=== PATIENT | female | born 1965 | race Caucasian/White ===

== ENCOUNTER → 2016-04-11 | Outpatient (CLI) | payer BC ==
--- NOTE | 2016-04-11 08:08 | MM ---
Reason for exam: follow-up at short interval from prior study. Last mammogram was performed 6 months ago. History: Family history of breast cancer in maternal grandmother at age 60. Benign cyst aspiration of the right breast, April 2014. Core biopsy of the right breast, 2006. Cyst aspiration of the left breast. Excisional biopsy of the right breast. Physical Findings: Nurse did not find any significant physical abnormalities on exam. MG 3D Diag Mammo W/Cad LT CC and MLO view(s) were taken of the left breast. Prior study comparison: October 25, 2015, bilateral MG 3d diag mammo w/cad BRAYDEN. October 23, 2014, bilateral MG diagnostic mammo w CAD BRAYDEN. The breast tissue is extremely dense which could obscure a lesion on mammography. Finding: There are typically benign round calcifications in the left breast. Previous mammotome biopsy in the left breast x 2. There is no discrete abnormality. These results were verbally communicated with the patient and result sheet given to the patient on 04/11/16. ASSESSMENT: Benign, BI-RAD 2 RECOMMENDATION: Routine screening mammogram of both breasts in 6 months.
== END | disposition home or self-care (01) ==
LOC: RADMAMWWP 06:57
PROVIDERS: ATTEND Surgery
DX: R92.8 Other abnormal and inconclusive findings on diagnostic imaging of breast (principal)
CPT/HCPCS: G0206; G0279

== ENCOUNTER → 2016-09-22 | Outpatient (CLI) | payer BC ==
--- NOTE | 2016-09-22 08:41 | BD ---
EXAMINATION TYPE: MG DEXA axial skeleton. DATE OF EXAM: 09/22/2016 COMPARISON: NONE CLINICAL HISTORY: Z78.0 POST MENOPAUSAL Height: 69 Weight: 128 FRAX RISK QUESTIONS: Alcohol (3 or more units per day): NO Family History (Parent hip fracture): NO Glucocorticoids (More than 3mos): NO (Ex: prednisone, prednisolone, methylprednisolone, dexamethasone, and hydrocortisone). History of Fracture in Adulthood: NO Secondary Osteoporosis: NO 1. Type 1 Diabetes: NO 2. Hyperthyroidism: NO 3. Menopause before 45: NA 4. Malnutrition: NO 5. Chronic liver disease: NO Rheumatoid Arthritis: NO Current Tobacco Use: NO RISK FACTORS HISTORY OF: Family History of Osteoporosis: NONE Active: YES Diet low in dairy products/other sources of calcium: NO Postmenopausal woman: NOVASURE, NO MENOPAUSE YES, PER PHYSICIAN If Premenopausal, do you have irregular periods: UNSURE, NOVASURE PROCEDURE. Lost more than 2 inches in height since high school: NO Hyperparathyroidism: NO Adrenal Insufficiency: NO MEDICATIONS: Additional Medications: VIT D, 4000 UNITS DAILY, MULTIVITAMIN, C AND B12 Additional History: NONE TO NOTE EXAM MEASUREMENTS: Bone mineral densitometry was performed using the [employer] System. Bone mineral density as measured about the Lumbar spine is: ----- L1-L4(G/cm2): 1.267 T Score Values are as follows: ----- L1: 1.5 ----- L2: 1.4 ----- L3: 0.6 ----- L4: -0.4 ----- L1-L4: 0.7 Bone mineral density THIS IS HER FIRST BONE DENSITY SCAN.....BASELINE Bone mineral density about the R hip (g/cm2): 0.966 Bone mineral density about the L hip (g/cm2): 1.008 T Score values are as follows: -----R Neck: -0.5 -----L Neck: -0.1 -----R Total: -0.3 -----L Total: 0.0 Bone mineral density THIS IS HER FIRST BONE DENSITY TEST....BASELINE FRAX %'S: THERE IS A 3.0% CHANCE OF A MAJOR OSTEOPOROTIC FX AND A 0.1% CHANCE OF A HIP FX.....CT OBABILITY IN 10 YRS TIME IMPRESSION: Normal (Values between +1 and -1 indicate normal bone mass). Consider repeating this study in 5 year s or sooner if there is some new clinical indication FOR BOTH OF HER HIPS AND HER LUMBAR SPINE. NOTE: T-SCORE=SD OF THE YOUNG ADULT MEAN.
== END ==
LOC: RADBDWWP 08:00
PROVIDERS: ATTEND Obstetrics & Gynecology
DX: Z78.0 Asymptomatic menopausal state (principal)
CPT/HCPCS: 77080

== ENCOUNTER → 2016-10-23 | Outpatient (CLI) | payer BC ==
--- NOTE | 2016-10-23 09:36 | MM ---
Reason for exam: follow-up at short interval from prior study. Last mammogram was performed 6 months ago. History: Family history of breast cancer in mother at age 75 and breast cancer in maternal grandmother at age 60. Benign stereotactic core biopsy of the left breast, October 2015. Benign cyst aspiration of the right breast, April 2014. Core biopsy of the right breast, 2006. Cyst aspiration of the left breast. Excisional biopsy of the right breast. Physical Findings: Nurse did not find any significant physical abnormalities on exam. MG 3D Diag Mammo W/Cad BRAYDEN Bilateral CC and MLO view(s) were taken. Prior study comparison: April 11, 2016, left breast MG 3d diag mammo w/cad LT. October 25, 2015, bilateral MG 3d diag mammo w/cad [facility]RAY[facility]. The breast tissue is extremely dense which could obscure a lesion on mammography. Post biopsy changes in the left breast. These results were verbally communicated with the patient and result sheet given to the patient on 10/23/16. ASSESSMENT: Benign, BI-RAD 2 RECOMMENDATION: Routine screening mammogram of both breasts in 1 year.
== END | disposition home or self-care (01) ==
LOC: RADMAMWWP 08:52
PROVIDERS: ATTEND Surgery
DX: R92.8 Other abnormal and inconclusive findings on diagnostic imaging of breast (principal)
CPT/HCPCS: G0204; G0279

== ENCOUNTER → 2017-10-30 | Outpatient (CLI) | payer BC ==
--- NOTE | 2017-11-02 13:43 | MM ---
Reason for exam: screening (asymptomatic). Last mammogram was performed 1 year ago. History: Family history of breast cancer in mother at age 75 and breast cancer in maternal grandmother at age 60. Benign stereotactic core biopsy of the left breast, October 2015. Benign cyst aspiration of the right breast, April 2014. Core biopsy of the right breast, 2006. Cyst aspiration of the left breast. Excisional biopsy of the right breast. Physical Findings: A clinical breast exam by your physician is recommended on an annual basis and results should be correlated with mammographic findings. MG 3D Screening Mammo W/Cad Bilateral CC and MLO view(s) were taken. Prior study comparison: October 23, 2016, bilateral MG 3d diag mammo w/cad B[facility]. April 11, 2016, left breast MG 3d diag mammo w/cad LT. The breast tissue is extremely dense which could obscure a lesion on mammography. Benign calcifications. Previous mammotome biopsy in the left breast. No significant changes when compared with prior studies. ASSESSMENT: Benign, BI-RAD 2 RECOMMENDATION: Routine screening mammogram of both breasts in 1 year.
== END | disposition home or self-care (01) ==
LOC: RADMAMWWP 16:05
PROVIDERS: ATTEND Surgery
DX: Z12.31 Encounter for screening mammogram for malignant neoplasm of breast (principal)
CPT/HCPCS: 77063; 77067

== ENCOUNTER → 2017-12-17 | Outpatient (CLI) | payer BC ==
[2017-12-17 09:32] VITALS: BP 142/80; PULSE 55; RESP 16; TEMP 97.3; BMI 19.3
--- NOTE | 2017-12-17 10:02 | P.GSHP ---
History of Present Illness H&P Date: 12/17/17 Chief Complaint: dense breast The patient is a 51 year old white female with a complaint of soreness in her right breast. It has been there for several weeks. She had an ovarian ablation but does not have periods, she can't tell if this is cylical. She does drink a pot of coffee/day. She does not smoke. The patient has no history of infection in her breast. She has no nipple discharge or skin changes. She has no history of any trauma to her breast. Patient had bilateral mammogram performed 9718 this was BIRADS 2 showing extremely dense breast tissue. No significant changes when compared to prior studies and routine mammogram of both breasts in 1 year was recommended. Family History: 1. Mother: Breast cancer 2. Maternal grandmother: Breast cancer 3. Father: Laryngeal cancer he was a prior smoker Hormonal history: Menarche:16 : 2, breast fed: none, age at first: 31 menopause: status post ablation BCP: 5 years hormones: none Past surgical history: 1. Cholecystectomy 2. Ventral hernia repair 3. uterine ablation 4. Breast biopsy 5. Bladder suspension Past medical history: Negative Social history: Smoking: Negative Alcohol: Negative Drugs: Negative - Constitutional Constitutional: Denies chills, Denies fever - EENT Eyes: denies blurred vision, denies pain Ears: deny: decreased hearing, tinnitus Ears, nose, mouth and throat: Denies headache, Denies sore throat - Breasts Breasts: bilateral: as per HPI - Cardiovascular Cardiovascular: Denies chest pain, Denies shortness of breath - Respiratory Respiratory: Denies cough, Denies 7 - Gastrointestinal Gastrointestinal: Denies abdominal pain, Denies diarrhea, Denies nausea, Denies vomiting - Genitourinary (Female) Comment: uterine ablation done for bleeding - Menstruation Menstruation: Reports as per HPI - Musculoskeletal Musculoskeletal: Denies myalgias - Integumentary Integumentary: Denies pruritus, Denies rash - Neurological Neurological: Denies numbness, Denies weakness - Psychiatric Psychiatric: Denies anxiety, Denies depression - Endocrine Endocrine: Denies fatigue, Denies weight change - Hematologic/Lymphatic Comment: none - Allergic/Immunologic Comment: none Past Medical History Past Medical History: No Reported History History of Any Multi-Drug Resistant Organisms: None Reported Past Surgical History: Ablation, Bladder Surgery, Cholecystectomy, Hernia Repair Additional Past Surgical History / Comment(s): uterine ablation Additional Past Anesthesia/Blood Transfusion Reaction / Comment(s): N &V Past Psychological History: No Psychological Hx Reported Smoking Status: Never smoker Past Alcohol Use History: None Reported Past Drug Use History: None Reported - Past Family History Mother Family Medical History: AFIB, Cancer Additional Family Medical History / Comment(s): breast cancer age 76 Father Family Medical History: Coronary Artery Disease (CAD), Diabetes Mellitus Additional Family Medical History / Comment(s): open heart Surgical - Exam Vital Signs Temp Pulse Resp BP Pulse Ox 97.3 F L 55 L 16 142/80 100 12/17/17 09:21 12/17/17 09:21 12/17/17 09:21 12/17/17 09:21 12/17/17 09:21 BMI 19.4 - General well developed, no distress - Eyes normal ocular movement - ENT no hearing loss, no congestion - Neck no masses, trachea midline - Respiratory normal respiratory effort, clear to auscultation - Cardiovascular Rhythm: regular Heart Sounds: normal: S1, S2 - Abdomen Abdomen: soft - Integumentary no rash, no abnormal pigmentation - Neurologic no disoriented, no combative - Musculoskeletal normal gait, normal posture - Psychiatric oriented to time, oriented to person, oriented to place, speech is normal, memory intact breast exam: right breast: Multi-positional exam increased nodularity at the 7 o'clock position inferior outer quadrant, well-healed scar from prior biopsy Right axilla: Shoddy adenopathy Left breast: Dense breast no dominant masses or nodules of concern on multi- positional exam Left axilla: No adenopathy of concern Results Bilateral mammogram results from 9717 reviewed, these are benign BIRADS 2 Assessment and Plan Assessment: Impression: 1. Dense breast 2. Increased nodularity right breast lower outer quadrant area 3. Bilateral mammogram 9717 benign Plan: 1. FNA of increased nodularity right breast 2. Follow-up one week for results of FNA 3. We have discussed that the pain in her breast may be related to caffeine intake/1 pot of coffee a day. The patient understands this and will consider if she wishes to decrease her caffeine intake. She does not smoke she is not exposed to secondhand smoke and she does not drink soda or eat large quantities of chocolate. DR. Madrigal
--- NOTE | 2017-12-17 10:09 | P.PCN ---
Date of Procedure: 12/17/17 Preoperative Diagnosis: Increased nodularity right breast lower outer quadrant Postoperative Diagnosis: same Procedure(s) Performed: FNA right breast Anesthesia: none Surgeon: Melisa Leiva Pathology: other (breast cytology) Condition: stable Disposition: same day Indications for Procedure: increased nodularity right breast Description of Procedure: The area of concern in the right breast was prepped using alcohol. 22-gauge needle was inserted into the area of concern and multiple passes were obtained obtaining cytology. Cytology was placed on a slide and repaired for evaluation by pathology. The patient tolerated procedure in stable condition.
== END | disposition home or self-care (01) ==
LOC: WWCWWP 08:45
PROVIDERS: ATTEND Surgery
DX: N64.9 Disorder of breast, unspecified (principal)
CPT/HCPCS: 88173; 88305

== ENCOUNTER → 2018-03-04 | Outpatient (CLI) | payer BC ==
[2018-03-04 10:36] VITALS: BP 154/77; PULSE 70; RESP 18; TEMP 97.5; BMI 19.2
--- NOTE | 2018-03-04 10:56 | P.PN ---
Subjective Progress Note Date: 03/04/18 Principal diagnosis: Persistent nodularity right breast Imelda is a 52 year old white female who presents with an area of nodularity in her right breast. The pain is improved. She continues to drink coffee. No nipple discharge or changes in her skin. Objective - Vital Signs Vital signs: Vital Signs Temp 97.5 F L 03/04/18 10:26 Pulse 70 03/04/18 10:26 Resp 18 03/04/18 10:26 BP 154/77 03/04/18 10:26 Pulse Ox 99 03/04/18 10:26 Intake & Output 03/03/18 03/04/18 03/04/18 18:59 06:59 18:59 Weight 58.967 kg - Exam BMI 19.2 - Constitutional General appearance: Present: average body habitus, cooperative - EENT Eyes: Present: EOMI ENT: Present: hearing grossly normal - Neck Neck: Present: normal ROM - Respiratory Respiratory: bilateral: CTA - Cardiovascular Rhythm: regular Heart sounds: normal: S1, S2 - Gastrointestinal General gastrointestinal: Present: soft - Integumentary Integumentary: Present: normal turgor - Musculoskeletal Musculoskeletal: Present: gait normal - Psychiatric Psychiatric: Present: A&O x's 3, appropriate affect, intact judgment & insight - Additional findings Additional findings: Examination: Right breast: Well-healed scar from prior biopsy, multi-positional exam very dense breast tissue with no discrete dominant mass, the breast is densest in the upper quadrant areas Right axilla: Benjamín mild shoddy adenopathy nothing of concern Left breast: Multi-positional exam dense breast with increased density in the upper outer quadrant areas but no dominant masses or nodules of concern Left axilla: No adenopathy of concern Assessment and Plan Assessment: Impression: 1. Extremely dense bilateral breast noted on mammogram of 9718 2. No discrete dominant mass or nodule of concern although bilateral dense breast 3. Family history of breast cancer in mother and maternal grandmother Plan: 1. Bilateral breast ultrasound/ follow up after ultrasound 2. Continued close surveillance/ appointment for exam in 6 months Cc: Dr. Madrigal
== END ==
LOC: WWCWWP 09:55
PROVIDERS: ATTEND Surgery
DX: Z53.9 Procedure and treatment not carried out, unspecified reason (principal)

== ENCOUNTER → 2018-03-10 | Outpatient (CLI) | payer BC ==
--- NOTE | 2018-03-15 16:52 | USB ---
Reason for exam: follow-up at short interval from prior study. History: Family history of breast cancer in mother at age 75 and breast cancer in maternal grandmother at age 60. Benign stereotactic core biopsy of the left breast, October 2015. Benign cyst aspiration of the right breast, April 2014. Core biopsy of the right breast, 2006. Cyst aspiration of the left breast. Excisional biopsy of the right breast. Physical Findings: Nurse did not find any significant physical abnormalities on exam. US Breast BILAT Bilateral complete breast ultrasound includes all four quadrants, the retroareolar region and axilla. Finding demonstrates on the right breast a 7 x 5 x 7 mm oval cystic lesion at 8 o'clock. On the left breast a 5 x 4 x 5 mm oval hypoechoic lesion at 2 o'clock, a 5 x 2 x 6 mm oval hypoechoic lesion at 9 o'clock. and a 5 x 3 x 5 mm oval hypoechoic lesion at 11 o'clock. These results were verbally communicated with the patient and result sheet given to the patient on 03/10/18. ASSESSMENT: Probably benign, BI-RAD 3 RECOMMENDATION: Ultrasound of the left breast in 6 months.
== END | disposition home or self-care (01) ==
LOC: RADUSWWP 08:03
PROVIDERS: ATTEND Surgery
DX: R92.8 Other abnormal and inconclusive findings on diagnostic imaging of breast (principal)

== ENCOUNTER → 2018-03-18 | Outpatient (CLI) | payer BC ==
[2018-03-18 09:36] VITALS: BP 150/77; PULSE 70; RESP 18; TEMP 98.3; BMI 19.2
--- NOTE | 2018-03-18 09:51 | P.PN ---
Subjective Progress Note Date: 03/18/18 Imelda is a 52-year-old white female who was seen on with an area of nodularity in her right breast. The patient on examination at that time was noted to have very dense breast tissue with no dominant masses or nodules of concern the breast was done cyst in the upper outer quadrant area. On examination of the axilla she had some mild shotty adenopathy not felt to be of concern in her left breast she had dense breast tissue with increased density again in the upper outer quadrant areas but no dominant masses or nodules of concern and no axillary adenopathy of concern. [place] [address]. On the right breast she had a 7 x 5 x 7 mm oval cystic lesion at 8:00 in the left breast she had a 5 x 4 x 5 mm oval hypoechoic lesion at 2:00, 5 x 2 x 6 mm oval hypoechoic lesion at 9:00, and a 5 x 3 x 5 mm hypoechoic lesion at 11:00. The results were felt to be probably benign and the patient was recommended to undergo ultrasound of the left breast in 6 months. The patient's last bilateral mammogram was 94712 and this was BIRADS 2 and repeat mammogram in 1 year was recommended. The patient did have an FNA of an area of the right breast performed on [id number] which was negative for malignancy. FNA discussion with the patient regarding the results. She has no new complaints at this time. Objective - Vital Signs Vital signs: Intake & Output 03/17/18 03/18/18 03/18/18 18:59 06:59 18:59 Weight 58.967 kg Assessment and Plan Assessment: Impression: 1. Patient family history of breast cancer 2. Patient very dense fibrocystic breast 3. Radiographic studies reviewed mammogram from October 2017 felt to be benign, most recent ultrasound of the bilateral breast felt to be benign but repeat left breast ultrasound in 6 months Plan: 1. Repeat bilateral mammogram in October with left breast ultrasound at that time (after discussion with the patient she has chosen to have both a mammogram and ultrasound done at the same time rather than the ultrasound several months earlier) 2. Patient will call us immediately if she notices anything of concern Cc: Dr. Jorge Madrigal
== END | disposition home or self-care (01) ==
LOC: WWCWWP 08:44
PROVIDERS: ATTEND Surgery
DX: Z53.9 Procedure and treatment not carried out, unspecified reason (principal)

== ENCOUNTER → 2018-09-10 | Outpatient (CLI) | payer BC ==
[2018-09-10 15:37] VITALS: BP 132/77; PULSE 58; RESP 18; TEMP 98.2; BMI 19.3
--- NOTE | 2018-09-10 16:01 | P.PN ---
Subjective Progress Note Date: 09/10/18 Imelda is a 52-year-old white female who was last seen in February 2018. She has had an area of nodularity in her right breast persistent since November 2017. An FNA had been performed of this which was benign on [id number]. The patients last bilateral mammogram was in October 2017 which was felt to be benign BIRADS 2 and repeat bilateral mammogram in 1 year was recommended. She had an ultrasound of the left breast on which revealed only cystic changes and a repeat left breast ultrasound in 6 months was recommended. Secondary to the coordination of the mammogram with the ultrasound it was opted to undergo the bilateral mammogram and left breast ultrasound in October 2018. The patient has intermittent pain at the area of nodularity in the right breast. This appears to be cyclical. She is not yet in menopause. She had a novasure ablation, so she does not have periods,however, she was told she is not ye menopausal. The patient's concern is that she has persistent nodularity in the right breast in the lateral aspect, it is intermittently tender, and she wonders if she should be doing anything about this. She drinks a pot of coffee/day. Patient does not smoke, is not exposed to secondhand smoke. She eats chocolate occasionally. Family History: Medical: Breast cancer Maternal grandmother: Breast cancer Father: Laryngeal cancer, he was a prior smoker Hormonal history: Menarche: 16 G2P to, breast fed: None Age of first : 31 Menopause: Status post ablation still has cyclical breast pain suspect is perimenopausal control pills: 5 years Hormones: Negative Past surgical history: 1. Cholecystectomy 2. Ventral hernia repair 2. Uterine ablation 4. Breast biopsy 5. Bladder suspension Past medical history: Negative Social history: Smoking: Negative Alcohol: Negative Drugs: Negative Review of systems: Constitutional: Negative Lungs: Negative Heart: Negative GI: Negative : Uterine ablation Musculoskeletal: Negative Integument: Negative Psychiatric: Negative Hematologic: Negative ALLERGIES: negative Objective - Vital Signs Vital signs: Vital Signs Temp 98.2 F 09/10/18 15:34 Pulse 58 L 09/10/18 15:34 Resp 18 09/10/18 15:34 BP 132/77 09/10/18 15:34 Pulse Ox 100 09/10/18 15:34 Intake & Output 09/09/18 09/10/18 09/10/18 18:59 06:59 18:59 Weight 61.235 kg - Exam BMI 19.4 - Constitutional General appearance: Present: average body habitus, cooperative - EENT Eyes: Present: EOMI ENT: Present: hearing grossly normal - Neck Neck: Present: normal ROM - Respiratory Respiratory: bilateral: CTA - Cardiovascular Rhythm: regular Heart sounds: normal: S1, S2 - Gastrointestinal General gastrointestinal: Present: soft - Integumentary Integumentary: Present: normal turgor - Musculoskeletal Musculoskeletal: Present: gait normal - Psychiatric Psychiatric: Present: A&O x's 3, appropriate affect, intact judgment & insight - Additional findings Additional findings: breast exam: right breast: Multi-positional exam reveals dense fibrocystic breast tissue, the patient has had a prior biopsy in this side with well-healed scar, there is no discrete mass is special attention was paid to the lateral aspect of the breast and no definite discrete mass was noted Right axilla: No adenopathy of concern left breast: Multi-positional exam dense fibrocystic breast tissue no discrete dominant masses or nodules of concern Left axilla: No adenopathy of concern Assessment and Plan Assessment: Impression: 1. Fibrocystic breast changes 2. drinks one pot of coffee/day 3. family history of breast cancer The patient understands the fibrocystic changes in her breast may be exacerbated by the caffeine she drinks. At this time she is going to consider decreasing her caffeine intake. Plan: 1. The patient is going to have bilateral mammogram in October, she has opted to have ultrasound of the left breast in October rather than earlier to coordinate with her mammogram 2. Patient is going to attempt to decrease her caffeine intake CC: DR. Madrigal
== END ==
LOC: WWCWWP 15:09
PROVIDERS: ATTEND Surgery
DX: Z53.9 Procedure and treatment not carried out, unspecified reason (principal)

== ENCOUNTER → 2018-11-22 | Outpatient (CLI) | payer BC ==
--- NOTE | 2018-11-22 09:50 | MM ---
Reason for exam: additional evaluation requested from prior study. Last mammogram was performed 1 year and 1 month ago. History: Family history of breast cancer in mother at age 75 and breast cancer in maternal grandmother at age 60. Benign stereotactic core biopsy of the left breast, October 2015. Benign cyst aspiration of the right breast, April 2014. Core biopsy of the right breast, 2006. Cyst aspiration of the left breast. Excisional biopsy of the right breast. Physical Findings: Nurse did not find any significant physical abnormalities on exam. MG 3D Diag Mammo W/Cad BRAYDEN Bilateral CC and MLO view(s) were taken. Prior study comparison: October 30, 2017, bilateral MG 3d screening mammo w/cad. October 23, 2016, bilateral MG 3d diag mammo w/cad BRAYDEN. The breast tissue is heterogeneously dense. This may lower the sensitivity of mammography. No suspicious abnormality. Post excisional change on the right. Left biopsy markers noted. These results were verbally communicated with the patient and result sheet given to the patient on 11/22/18. ASSESSMENT: Benign, BI-RAD 2 RECOMMENDATION: Routine screening mammogram of both breasts in 1 year.
--- NOTE | 2018-11-22 09:52 | USB ---
Reason for exam: additional evaluation requested from prior study. History: Family history of breast cancer in mother at age 75 and breast cancer in maternal grandmother at age 60. Benign stereotactic core biopsy of the left breast, October 2015. Benign cyst aspiration of the right breast, April 2014. Core biopsy of the right breast, 2006. Cyst aspiration of the left breast. Excisional biopsy of the right breast. US Breast LT Left complete breast ultrasound includes all four quadrants, the retroareolar region and axilla. Finding demonstrates a 6 x 3 x 6mm oval, cystic lesion at 2 o'clock, prior 7 x 5 x 7mm, a 5 x 3 x 4mm oval, cystic lesion at 9 o'clock, prior 5 x 4 x 6mm at 9 o'clock and a 5 x 3 x 5mm oval, cystic, hypoechoic lesion at 11 o'clock, complicated cyst, prior 5 x 3 x 5mm. All seen on previous. These results were verbally communicated with the patient and result sheet given to the patient on 11/22/18. ASSESSMENT: Benign, BI-RAD 2 RECOMMENDATION: Routine screening mammogram of both breasts in 1 year.
== END | disposition home or self-care (01) ==
LOC: RADMAMWWP 06:57
PROVIDERS: ATTEND Surgery
DX: R92.8 Other abnormal and inconclusive findings on diagnostic imaging of breast (principal)
CPT/HCPCS: 77062; 77066

== ENCOUNTER → 2018-12-03 | Outpatient (CLI) | payer BC ==
[2018-12-03 14:09] VITALS: BP 142/82; PULSE 53; RESP 16; TEMP 97.9; BMI 19.9
--- NOTE | 2018-12-03 14:43 | P.PN ---
Subjective Progress Note Date: 12/03/18 Elma is a 52-year-old white female who presents for breast examination. She had a bilateral mammogram on this was benign BIRADS 2 and showed a left breast ultrasound on the same date which was also benign BIRADS 2 repeats present lateral mammogram in 1 year recommended. The patient states the discomfort she was having in her breast has decreased as she has decreased her caffeine intake. She does not feel any new masses or nodules for which she is concerned. Family History: Medical: Breast cancer Maternal grandmother: Breast cancer Father: Laryngeal cancer, he was a prior smoker Hormonal history: Menarche: 16 breast fed: None Age at first : 31 Menopause: Status post ablation still has cyclical breast pain suspect is perimenopausal control pills: 5 years Hormones: Negative Past surgical history: 1. Cholecystectomy 2. Ventral hernia repair 2. Uterine ablation 4. Breast biopsy 5. Bladder suspension Past medical history: Negative Social history: Smoking: Negative Alcohol: Negative Drugs: Negative Review of systems: Constitutional: Negative Lungs: Negative Heart: Negative GI: Negative : Uterine ablation Musculoskeletal: Negative Integument: Negative Psychiatric: Negative Hematologic: Negative ALLERGIES: negative Objective - Vital Signs Vital signs: Vital Signs Temp 97.9 F 12/03/18 14:03 Pulse 53 L 12/03/18 14:03 Resp 16 12/03/18 14:03 BP 142/82 12/03/18 14:03 Pulse Ox 99 12/03/18 14:03 Intake & Output 12/02/18 12/03/18 12/03/18 18:59 06:59 18:59 Weight 61.235 kg - Exam BMI 19.9 - Constitutional General appearance: Present: average body habitus - EENT Eyes: Present: EOMI ENT: Present: hearing grossly normal - Neck Neck: Present: normal ROM - Respiratory Respiratory: bilateral: CTA - Cardiovascular Rhythm: regular Heart sounds: normal: S1, S2 - Gastrointestinal General gastrointestinal: Present: soft - Integumentary Integumentary: Present: normal turgor - Musculoskeletal Musculoskeletal: Present: gait normal - Psychiatric Psychiatric: Present: A&O x's 3, appropriate affect - Additional findings Additional findings: Breast examination: Right breast: Multi-positional exam fibrocystic changes no dominant masses or nodules of concern Right axilla: No adenopathy of concern Left breast: Multi-positional exam no dominant mass or notches of concern Left axilla: No adenopathy of concern Assessment and Plan Assessment: Impression: 1. Fibrocystic breast changes 2. His decreased her amount of caffeine intake and decreased mastodynia 3. Family history of breast cancer Plan: 1. Patient is going to have bilateral mammogram in 1 year line 2. Repeat physical exam here in 6 months 3. Patient will call if any changes or any concerns
== END | disposition home or self-care (01) ==
LOC: WWCWWP 13:41
PROVIDERS: ATTEND Surgery
DX: Z53.9 Procedure and treatment not carried out, unspecified reason (principal)

== ENCOUNTER → 2020-01-30 | Outpatient (CLI) | payer BC ==
--- NOTE | 2020-01-30 12:04 | MM ---
Reason for exam: screening (asymptomatic). Last mammogram was performed 1 year and 2 months ago. History: Family history of breast cancer in mother at age 75 and breast cancer in maternal grandmother at age 60. Benign stereotactic core biopsy of the left breast, October 2015. Benign cyst aspiration of the right breast, April 2014. Core biopsy of the right breast, 2006. Cyst aspiration of the left breast. Excisional biopsy of the right breast. Physical Findings: A clinical breast exam by your physician is recommended on an annual basis and results should be correlated with mammographic findings. MG 3D Screening Mammo W/Cad Bilateral CC and MLO view(s) were taken. XCCL view(s) were taken of the left breast. Prior study comparison: November 22, 2018, bilateral MG 3d diag mammo w/cad [facility]. October 30, 2017, bilateral MG 3d screening mammo w/cad. The breast tissue is extremely dense which could obscure a lesion on mammography. There are benign appearing round calcifications in the left breast. There is no discrete abnormality. ASSESSMENT: Benign, BI-RAD 2 RECOMMENDATION: Routine screening mammogram of both breasts in 1 year.
== END | disposition home or self-care (01) ==
LOC: RADMAMWWP 11:01
PROVIDERS: ATTEND Surgery
DX: Z12.31 Encounter for screening mammogram for malignant neoplasm of breast (principal)
CPT/HCPCS: 77063; 77067

== ENCOUNTER → 2020-02-02 | Outpatient (CLI) | payer BC ==
--- NOTE | 2020-02-02 16:02 | P.PN ---
Subjective Progress Note Date: 02/02/20 Principal diagnosis: Fibrocystic breast changes Elma is a 54-year-old white female who presents for breast examination. She had a bilateral mammogram on 01-30-20 this was benign BIRADS 2. She does not feel any lumps masses or nodules in her breast. The patient states the dis comfort she was having in her breast has decreased as she has decreased her caffeine intake. She is not complaining of any nipple discharge. She has no recent trauma or infection in the breast. Short and open left breast biopsy in the remote past which was benign Caffeine: 2 cups coffee in am Nicotine: Negative Theophylline: none Family History: Medical: Breast cancer Maternal grandmother: Breast cancer Father: Laryngeal cancer, he was a prior smoker Hormonal history: Menarche: 16 breast fed: None Age at first : 31 Menopause: Status post ablation still has cyclical breast pain suspect is perimenopausal control pills: 5 years Hormones: Negative Past surgical history: 1. Cholecystectomy 2. Ventral hernia repair 2. Uterine ablation 4. Breast biopsy 5. Bladder suspension Past medical history: Negative Social history: Smoking: Negative Alcohol: Negative Drugs: Negative Review of systems: Constitutional: Negative Lungs: Negative Heart: Negative GI: Negative : Uterine ablation Musculoskeletal: Negative Integument: Negative Psychiatric: Negative Hematologic: Negative ALLERGIES: negative Objective - Vital Signs Vital signs: Intake & Output 02/01/20 02/02/20 02/02/20 18:59 06:59 18:59 Weight 63.503 kg - Exam BMI 20.1 - Constitutional General appearance: Present: average body habitus - EENT Eyes: Present: EOMI ENT: Present: hearing grossly normal - Neck Neck: Present: normal ROM - Respiratory Respiratory: left: CTA - Cardiovascular Rhythm: regular Heart sounds: normal: S1, S2 - Gastrointestinal General gastrointestinal: Present: normal bowel sounds, soft - Integumentary Integumentary: Present: normal turgor - Musculoskeletal Musculoskeletal: Present: gait normal - Psychiatric Psychiatric: Present: A&O x's 3, appropriate affect, intact judgment & insight - Additional findings Additional findings: breast exam: BRA: 32A inspection: bilateral ptosis grade 2 palpation: right breast: Multi-positional exam fibrocystic changes no dominant masses or nodules of concern Right axilla: No adenopathy of concern Left breast: Multi-positional exam no dominant mass or nodule is of concern, fibrocystic changes Left axilla: No adenopathy of concern Assessment and Plan Assessment: Impression: 1. Fibrocystic breast changes 2. Bilateral mammogram BIRADS 2 benign [id number] Plan: 1. Fibrocystic breast changes 2. Close surveillance secondary to strong family history of cancer 3. Repeat bilateral mammogram and examination in 1 year 4. Patient to follow up sooner if any questions or concerns CC: Dr. Carlin encounter 15 minutes, > 50% of time in planning and counselling
[2020-02-02 16:35] VITALS: BP 173/74; PULSE 56; RESP 16; TEMP 97.6
== END | disposition home or self-care (01) ==
LOC: WWCWWP 15:34
PROVIDERS: ATTEND Surgery
DX: Z53.9 Procedure and treatment not carried out, unspecified reason (principal)

== ENCOUNTER → 2021-01-31 | Outpatient (CLI) | payer BC ==
--- NOTE | 2021-02-04 10:28 | MM ---
Reason for exam: screening (asymptomatic). Last mammogram was performed 1 year ago. History: Family history of breast cancer in mother at age 75 and breast cancer in maternal grandmother at age 60. Benign stereotactic core biopsy of the left breast, October 2015. Benign cyst aspiration of the right breast, April 2014. Core biopsy of the right breast, 2006. Cyst aspiration of the left breast. Excisional biopsy of the right breast. Physical Findings: A clinical breast exam by your physician is recommended on an annual basis and results should be correlated with mammographic findings. MG 3D Screening Mammo W/Cad Bilateral CC and MLO view(s) were taken. Prior study comparison: January 30, 2020, bilateral MG 3d screening mammo w/cad. November 22, 2018, bilateral MG 3d diag mammo w/cad [facility]. The breast tissue is extremely dense which could obscure a lesion on mammography. Finding: There are increased fine, grouped/clustered calcifications in the upper inner quadrant, middle position of the right breast. Previous mammotome biopsy in the left breast. New finding since January 30, 2020 and November 22, 2018. ASSESSMENT: Incomplete: need additional imaging evaluation, BI-RAD 0 RECOMMENDATION: Special view mammogram of the right breast. [facility] will attempt to contact patient to return for supplemental views.
== END | disposition home or self-care (01) ==
LOC: RADMAMWWP 16:21
PROVIDERS: ATTEND Surgery
DX: Z12.31 Encounter for screening mammogram for malignant neoplasm of breast (principal)
CPT/HCPCS: 77063; 77067

== ENCOUNTER → 2021-02-07 | Outpatient (CLI) | payer BC ==
--- NOTE | 2021-02-07 09:19 | P.PN ---
Subjective Progress Note Date: 02/07/21 Principal diagnosis: Fibrocystic breast changes Fibrocystic breast changes Elma is a 55-year-old white female who presents for breast examination. [place] [id number]. This revealed question of increased findings of clustered calcifications upper outer quadrant medial position of the right breast. Additional views of the right breast was recommended. These were performed on 02-06-21. Preliminary reading from Dr. Dunn was this was a benign study of the right breast and a 1 year bilateral mammogram was recommended. She does not feel any lumps masses or nodules in her breast. The patient states the discomfort she was having in her breast has stoppped. She is not complaining of any nipple discharge. She has no recent trauma or infection in the breast. She had a stero left breast biopsy in the remote past which was benign and a right breast open biopsy. Maryse Risk Evaluation: 5 year risk: 3.4% left time risk: 23.2 % Caffeine: 2 cups coffee in am Nicotine: Negative chocolate: none Family History: Medical: Breast cancer Maternal grandmother: Breast cancer Father: Laryngeal cancer, he was a prior smoker Hormonal history: Menarche: 16 breast fed: None Age at first : 31 Menopause: Status post ablation still has cyclical breast pain suspect is perimenopausal control pills: 5 years Hormones: Negative Past surgical history: 1. Cholecystectomy 2. Ventral hernia repair 2. Uterine ablation 4. Breast biopsy 5. Bladder suspension Past medical history: Negative Social history: Smoking: Negative Alcohol: Negative Drugs: Negative Review of systems: Constitutional: Negative Lungs: Negative Heart: Negative GI: Negative : Uterine ablation Musculoskeletal: Negative Integument: Negative Psychiatric: Negative Hematologic: Negative ALLERGIES: negative Objective - Constitutional General appearance: Present: cooperative - EENT Eyes: Present: EOMI ENT: Present: hearing grossly normal - Neck Neck: Present: normal ROM - Respiratory Respiratory: bilateral: CTA - Cardiovascular Heart sounds: normal: S1, S2 - Gastrointestinal General gastrointestinal: Present: soft - Integumentary Integumentary: Present: normal turgor - Musculoskeletal Musculoskeletal: Present: gait normal - Psychiatric Psychiatric: Present: A&O x's 3, appropriate affect, intact judgment & insight - Additional findings Additional findings: Breast Examination: BRA: 36B Inspection: bilateral grade 3 ptosis Palpation: Right breast: Multi-positional exam fibrocystic changes, dense breast, no dominant masses or nodules of concern Right axilla: No adenopathy of concern Left breast: Multiple positional exam fibrocystic changes, dense breasts, no dominant masses or nodules of concern Left axilla: No adenopathy of concern Assessment and Plan Assessment: Impression/Plan: 1. fibrocystic breast disease 2. Maryse risk evaluated: patient at increased risk at this time she has declined appointment with medical oncology 3. we have discussed genetic counselling; she is going to consider this 4. Right breast mammogram reviewed with Dr. Dunn, she will have repeat right breast mammogram in 6 months with physician exam at that time 5. Bilateral mammogram in 1 year CC: Soila
--- NOTE | 2021-02-07 10:56 | MM ---
Reason for exam: additional evaluation requested from abnormal screening. Last mammogram was performed less than 1 month ago. History: Family history of breast cancer in mother at age 75 and breast cancer in maternal grandmother at age 60. Benign stereotactic core biopsy of the left breast, October 2015. Benign cyst aspiration of the right breast, April 2014. Core biopsy of the right breast, 2006. Cyst aspiration of the left breast. Excisional biopsy of the right breast. Physical Findings: Nurse did not find any significant physical abnormalities on exam. MG 3D Work Up W/Cad RT CC with magnification, ML with magnification, and ML view(s) were taken of the right breast. Prior study comparison: January 31, 2021, bilateral MG 3d screening mammo w/cad. January 30, 2020, bilateral MG 3d screening mammo w/cad. The breast tissue is extremely dense which could obscure a lesion on mammography. Previous mammotome biopsy in the left breast. No distinct new group of suspicious calcifications in the right breast. These results were verbally communicated with the patient and result sheet given to the patient on 02/07/21. ASSESSMENT: Negative, BI-RAD 1 RECOMMENDATION: Follow-up diagnostic mammogram of both breasts in 1 year.
== END | disposition home or self-care (01) ==
LOC: RADMAMWWP 07:31
PROVIDERS: ATTEND Surgery
DX: R92.8 Other abnormal and inconclusive findings on diagnostic imaging of breast (principal)
CPT/HCPCS: 77061; 77065

== ENCOUNTER → 2021-02-07 | Outpatient (CLI) | payer BC ==
[2021-02-07 08:38] VITALS: BP 182/79; PULSE 65; RESP 18; TEMP 97.9
== END | disposition home or self-care (01) ==
LOC: WWCWWP 08:34
PROVIDERS: ATTEND Surgery
DX: Z53.9 Procedure and treatment not carried out, unspecified reason (principal)

== ENCOUNTER 2021-03-05 07:08 | Day surgery (SDC) | payer BC ==
[2021-02-28 08:36] VITALS: BMI 19.8
[~2021-03-05 07:08] MED LIST: LACTATED RINGERS 1,000 ML IV SCH; LIDOCAINE 1% (10MG/ML) FOR IV START INTRADERMA PRN
[2021-03-05 07:31] VITALS: TEMP 97.6
[2021-03-05] MEDS ORDERED: PROPOFOL 10 MG/ML 20 ML VIAL IV ONE (08:01)
--- NOTE | 2021-03-05 08:28 | P.PCN ---
Date of Procedure: 03/05/21 Procedure(s) Performed: BRIEF HISTORY: Patient is a 55-year-old pleasant white female scheduled for an elective colonoscopy as a part of screening for colorectal neoplasia. PROCEDURE PERFORMED: Colonoscopy. PREOPERATIVE DIAGNOSIS: Screening for colon cancer. IV sedation per Anesthesia. PROCEDURE: After informed consent was obtained, the patient, was brought into the endoscopy unit. IV sedation was administered by Anesthesia under continuous monitoring. Digital rectal examination was normal. Initially the Olympus CF-160 flexible video colonoscope was then inserted in the rectum, gradually advanced into the cecum without any difficulty. Careful examination was performed as the scope was gradually being withdrawn. Ileocecal valve and the appendiceal orifice were visualized and appeared normal. Prep was excellent. Mucosa of the cecum, ascending colon, transverse colon, descending colon, sigmoid colon, and rectum appeared normal. Retroflexion was performed in the rectum and grade 2 internal hemorrhoids were seen. The patient tolerated the procedure well. IMPRESSION: Normal-appearing colon from rectum to cecum no evidence of colorectal neoplasia. Small internal hemorrhoids. RECOMMENDATIONS: Findings of this examination were discussed with the patient as well as her family. She was advised to have a repeat screening colonoscopy in 10 years..
[2021-03-05 08:47] VITALS: BP 129/75; PULSE 55; RESP 16
== END 2021-03-05 09:01 | disposition home or self-care (01) ==
LOC: ORWHC2ENDO 07:08
PROVIDERS: ATTEND Internal Medicine Gastroenterology
DX: Z12.11 Encounter for screening for malignant neoplasm of colon (principal); K64.1 Second degree hemorrhoids; K92.2 Gastrointestinal hemorrhage, unspecified; Z88.2 Allergy status to sulfonamides
CPT/HCPCS: 81025; J2704; G0121

== ENCOUNTER → 2021-08-05 | Outpatient (CLI) | payer BC ==
--- NOTE | 2021-08-06 09:29 | MM ---
Reason for Exam: Follow-up at short interval from prior study. Last screening mammogram was performed 6 month(s) ago. Patient History: Menarche at age 13. First Full-Term at age 31. Late child-bearing (after 30). 2006, Core Biopsy on the Right side. Cyst Aspiration on the Left side. Excisional Biopsy on the Right side. 10/2015, Benign Stereotactic Core Biopsy on the left side. 04/2014, Benign Cyst Aspiration on the right side. Maternal grandmother had breast cancer, age 60. Mother had breast cancer, age 75. Risk Values: Maryse 5 year model risk: 3.4%. NCI Lifetime model risk: 23.2%. Prior Study Comparison: 01/30/2020 Bilateral Screening Mammogram, [facility]. 01/31/2021 Bilateral Screening Mammogram, [facility]. 02/07/2021 Right Diagnostic Mammogram, [facility]. Tissue Density: Right: The breast tissue is heterogeneously dense. This may lower the sensitivity of mammography. Findings: Analyzed By CAD. No significant changes when compared with prior studies. Scattered calcifications are redemonstrated without increasing no suspicious cluster. No evidence for mass or distortion. Overall Assessment: Benign, BI-RAD 2 Management: Screening Mammogram of both breasts in 6 months. A clinical breast exam by your physician is recommended on an annual basis and results should be correlated with mammographic findings. This exam should not preclude additional follow-up of suspicious palpable abnormalities. Results were given to the patient verbally at the time of exam. Electronically signed and approved by: Lance Cody M.D. Radiologis
== END | disposition home or self-care (01) ==
LOC: RADMAMWWP 14:49
PROVIDERS: ATTEND Surgery
DX: R92.8 Other abnormal and inconclusive findings on diagnostic imaging of breast (principal)
CPT/HCPCS: 77061; 77065

== ENCOUNTER → 2021-08-09 | Outpatient (CLI) | payer BC ==
[2021-08-09 08:45] VITALS: BP 150/79; PULSE 57; RESP 16; TEMP 97.7
--- NOTE | 2021-08-09 09:26 | P.PN ---
Subjective Progress Note Date: 08/09/21 Principal diagnosis: Fibrocystic breast changes Fibrocystic breast changes Elma is a 55-year-old white female who presents for breast examination. She had a bilateral mammogram in . This revealed question of increased findings of clustered calcifications upper outer quadrant medial position of the right breast. Additional views of the right breast was recommended. These were performed on 02-06-21. Repeat right breast mammogram in 6 months recommended. A repeat right breast mammogram was done on 08-05-21, and this was BIRAD 2. She is not complaining of any new lumps masses or nodules of concern in either breast. She does feel some soreness under her left arm. States when she lifts her arm she can see some fullness at the site. Repeat bilateral mammogram in 6 months. The patient states the discomfort she was having in her breast has stoppped. She is not complaining of any nipple discharge. She has no recent trauma or infection in the breast. She had a stero left breast biopsy in the remote past which was benign and a right breast open biopsy. She has not had any trauma or injury to the left arm or hand and is uncertain as to why she has some soreness at that site. She has been doing [employer] and does some arm work with that. Maryse Risk Evaluation: 5 year risk: 3.4% left time risk: 23.2 % Caffeine: 2 cups coffee in am Nicotine: Negative chocolate: none Family History: Medical: Breast cancer Maternal grandmother: Breast cancer Father: Laryngeal cancer, he was a prior smoker Hormonal history: Menarche: 16 breast fed: None Age at first : 31 Menopause: Status post ablation still has cyclical breast pain suspect is perimenopausal control pills: 5 years Hormones: Negative Past surgical history: 1. Cholecystectomy 2. Ventral hernia repair 2. Uterine ablation 4. Breast biopsy 5. Bladder suspension 6. colonoscopy Past medical history: Negative Social history: Smoking: Negative Alcohol: Negative Drugs: Negative Review of systems: Constitutional: Negative Lungs: Negative Heart: Negative GI: Negative : Uterine ablation Musculoskeletal: Negative Integument: Negative Psychiatric: Negative Hematologic: Negative ALLERGIES: negative Objective - Vital Signs Vital signs: Vital Signs Temp 97.7 F 08/09/21 08:41 Pulse 57 L 08/09/21 08:41 Resp 16 08/09/21 08:41 BP 150/79 08/09/21 08:41 Pulse Ox 100 08/09/21 08:41 FiO2 Intake & Output 08/08/21 08/09/21 08/09/21 18:59 06:59 18:59 Weight 68.039 kg - Exam BMI: 21.5 - Constitutional General appearance: Present: cooperative - EENT Eyes: Present: EOMI ENT: Present: hearing grossly normal - Neck Neck: Present: normal ROM - Respiratory Respiratory: bilateral: CTA - Cardiovascular Heart sounds: normal: S1, S2 - Integumentary Integumentary: Present: normal turgor - Musculoskeletal Musculoskeletal: Present: gait normal - Psychiatric Psychiatric: Present: A&O x's 3, appropriate affect, intact judgment & insight - Additional findings Additional findings: Breast Exam: BRA: 32B inspection: bilateral grade 2 ptosis Patient: Right breast: Multi-positional exam no dominant masses or nodules of concern dense breast Right axilla: No adenopathy of concern left breast: Multiple positional exam fibrocystic changes, dense breasts no dominant masses or nodules of concern Left axilla particular attention does not reveal any adenopathy of concern no lumps masses or nodules with the arm elevated and Assessment and Plan Assessment: Impression: fibrocystic breast changes Plan: Bilateral mammogram in 6 months with physician examined that time Patient follow-up sooner any questions or concerns CC: Dr. Cm
== END ==
LOC: WWCWWP 08:30
PROVIDERS: ATTEND Surgery
DX: N60.12 Diffuse cystic mastopathy of left breast (principal); Z88.2 Allergy status to sulfonamides

== ENCOUNTER → 2022-02-03 | Outpatient (CLI) | payer BC ==
--- NOTE | 2022-02-03 15:14 | MM ---
Reason for Exam: Follow-up at short interval from prior study. Last screening mammogram was performed 12 month(s) ago. Patient History: Menarche at age 13. First Full-Term at age 31. Late child-bearing (after 30). 2006, Core Biopsy on the Right side. Cyst Aspiration on the Left side. Excisional Biopsy on the Right side. 10/2015, Benign Stereotactic Core Biopsy on the left side. 04/2014, Benign Cyst Aspiration on the right side. Maternal grandmother had breast cancer, age 60. Mother had breast cancer, age 75. Risk Values: Maryse 5 year model risk: 3.6%. NCI Lifetime model risk: 22.8%. Prior Study Comparison: 01/30/2020 Bilateral Screening Mammogram, [facility]. 01/31/2021 Bilateral Screening Mammogram, [facility]. 02/07/2021 Right Diagnostic Mammogram, [facility]. 08/05/2021 Right MG 3D diag mammo w/cad RT, [facility]. Tissue Density: The breast tissue is heterogeneously dense. This may lower the sensitivity of mammography. Findings: Analyzed By CAD. No suspicious masses, calcifications or distortions. left biopsy clip noted. Benign-appearing calcifications. Overall Assessment: Benign, BI-RAD 2 Management: Screening Mammogram of both breasts in 1 year. A clinical breast exam by your physician is recommended on an annual basis and results should be correlated with mammographic findings. This exam should not preclude additional follow-up of suspicious palpable abnormalities. Results were given to the patient verbally at the time of exam. Electronically signed and approved by: Dung Govea DO
== END | disposition home or self-care (01) ==
LOC: RADMAMWWP 14:45
PROVIDERS: ATTEND Surgery
DX: R92.8 Other abnormal and inconclusive findings on diagnostic imaging of breast (principal); Z80.3 Family history of malignant neoplasm of breast
CPT/HCPCS: 77062; 77066

== ENCOUNTER → 2022-02-07 | Outpatient (CLI) | payer BC ==
[2022-02-07 15:52] VITALS: BP 165/89; PULSE 59; RESP 16; TEMP 98.1
--- NOTE | 2022-02-07 16:19 | P.PN ---
Subjective Progress Note Date: 02/07/22 Principal diagnosis: fibrocystic breast changes Fibrocystic breast changes Elma is a 55-year-old white female who presents for breast examination. [place] [id number]. This revealed question of increased findings of clustered calcifications upper outer quadrant medial position of the right breast. Additional views of the right breast was recommended. These were performed on 02-06-21. Repeat right breast mammogram in 6 months recommended. A repeat right breast mammogram was done on 08-05-21, and this was BIRAD 2. She has had a stereo left breast biopsy in the remote past which was benign in the right breast open biopsy in the remote past which was benign. A bilateral mammogram was performed on [id number] this was benign BIRADS 2. This was reviewed in person with Dr. Naranjo. The patient does not complain of any new lumps masses or nodules of concern in either breast. We have discussed her Maryse risk at 5 years of 3.4% and she has declined chemoprevention. Maryse Risk Evaluation: 5 year risk: 3.4% left time risk: 23.2 % Caffeine: 2 cups coffee in am Nicotine: Negative chocolate: none Family History: Medical: Breast cancer Maternal grandmother: Breast cancer Father: Laryngeal cancer, he was a prior smoker Hormonal history: Menarche: 16 breast fed: None Age at first : 31 Menopause: Status post ablation still has cyclical breast pain suspect is perimenopausal control pills: 5 years Hormones: Negative Past surgical history: 1. Cholecystectomy 2. Ventral hernia repair 2. Uterine ablation 4. Breast biopsy 5. Bladder suspension 6. colonoscopy Past medical history: Negative Social history: Smoking: Negative Alcohol: Negative Drugs: Negative Review of systems: Constitutional: Negative Lungs: Negative Heart: Negative GI: Negative : Uterine ablation Musculoskeletal: Negative Integument: Negative Psychiatric: Negative Hematologic: Negative ALLERGIES: negative Objective - Vital Signs Vital signs: Vital Signs Temp 98.1 F 02/07/22 15:48 Pulse 59 L 02/07/22 15:48 Resp 16 02/07/22 15:48 BP 165/89 02/07/22 15:48 Pulse Ox 100 02/07/22 15:48 FiO2 Intake & Output 02/06/22 02/07/22 02/07/22 18:59 06:59 18:59 Weight 65.771 kg - Constitutional General appearance: Present: cooperative - EENT Eyes: Present: EOMI ENT: Present: hearing grossly normal - Neck Neck: Present: normal ROM - Respiratory Respiratory: bilateral: CTA - Cardiovascular Heart sounds: normal: S1, S2 - Integumentary Integumentary: Present: normal turgor - Musculoskeletal Musculoskeletal: Present: gait normal - Psychiatric Psychiatric: Present: A&O x's 3, appropriate affect, intact judgment & insight - Additional findings Additional findings: Breast Exam: BRA: 32B inspection: bilateral grade 2 ptosis Patient: Right breast: Multi-positional exam no dominant masses or nodules of concern dense breast Right axilla: No adenopathy of concern left breast: Multiple positional exam fibrocystic changes, dense breasts no dominant masses or nodules of concern Left axilla particular attention does not reveal any adenopathy of concern no lumps masses or nodules with the arm elevated and Assessment and Plan Assessment: Impression: fibrocystic breast changes Plan: Bilateral mammogram in 12 months physician examine in 6 months Patient follow-up sooner any questions or concerns CC: Dr. Cm
== END ==
LOC: WWCWWP 15:32
PROVIDERS: ATTEND Surgery
DX: N60.12 Diffuse cystic mastopathy of left breast (principal); Z88.2 Allergy status to sulfonamides

== ENCOUNTER → 2022-02-24 | Outpatient (CLI) | payer BC ==
--- NOTE | 2022-02-24 10:36 | BD ---
EXAMINATION TYPE: Axial Bone Density DATE OF EXAM: 02/24/2022 COMPARISON: 09.22.2016 CLINICAL HISTORY: 56 years year old Female. 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 Bone mineral density as measured about the Lumbar spine is: ----- L1-L4(G/cm2): 1.209 T Score Values are as follows: ----- L1: 0.1 ----- L2: 0.6 ----- L3: 0.9 ----- L4: -0.6 ----- L1-L4: 0.2 Bone mineral density has: Decreased -4.6% since study of: 09.22.2016 Bone mineral density about the R hip (g/cm2): 0.939 Bone mineral density about the L hip (g/cm2): 0.959 T Score values are as follows: -----R Neck: -0.7 -----L Neck: -0.6 -----R Total: -0.5 -----L Total: -0.4 Bone mineral density has: Decreased -4.1% since study of: 09.22.2016 FRAX%s: The graph provided illustrates a 5.2% chance for a major osteoporotic fx and a 0.2% chance fo r the hips probability for fx in 10 years time. IMPRESSION: Normal (Values between +1 and -1 indicate normal bone mass). Consider repeating this study in 5 year s or sooner if there is some new clinical indication. NOTE: T-SCORE=SD OF THE YOUNG ADULT MEAN.
== END | disposition home or self-care (01) ==
LOC: RADBDWWP 09:07
PROVIDERS: ATTEND Obstetrics & Gynecology
DX: N95.1 Menopausal and female climacteric states (principal)
CPT/HCPCS: 77080

== ENCOUNTER → 2022-08-06 | Outpatient (CLI) | payer BC ==
--- NOTE | 2022-08-06 15:19 | P.PN ---
Subjective Progress Note Date: 08/06/22 Principal diagnosis: fibrocystic breast changes Fibrocystic breast changes Elma is a 56-year-old white female who presents for breast examination. [place] [id number]. This revealed question of increased findings of clustered calcifications upper outer quadrant medial position of the right breast. Additional views of the right breast was recommended. These were performed on 02-06-21. Repeat right breast mammogram in 6 months recommended. A repeat right breast mammogram was done on 08-05-21, and this was BIRAD 2. She has had a stereo left breast biopsy in the remote past which was benign in the right breast open biopsy in the remote past which was benign. A bilateral mammogram was performed on [id number] this was benign BIRADS 2. This was reviewed in person with Dr. Naranjo. The patient does not complain of any new lumps masses or nodules of concern in either breast. We have discussed her Maryse risk at 5 years of 3.4% and she has declined chemoprevention. 08-06-22 Complain of any new lumps masses or not some concern in either breast. Maryse risk evaluation: 5 year risk: 3.4%, patient has declined chemoprevention Lifetime risk: 23.2%; she is interested in 6 month alternating mammogram and MRI We discussed genetic testing. Caffeine: 2 cups coffee in am Nicotine: Negative chocolate: none Family History: Medical: Breast cancer Maternal grandmother: Breast cancer Father: Laryngeal cancer, he was a prior smoker Hormonal history: Menarche: 16 breast fed: None Age at first : 31 Menopause: Status post ablation still has cyclical breast pain suspect is perimenopausal control pills: 5 years Hormones: Negative Past surgical history: 1. Cholecystectomy 2. Ventral hernia repair 2. Uterine ablation 4. Breast biopsy 5. Bladder suspension 6. colonoscopy Past medical history: Negative Social history: Smoking: Negative Alcohol: Negative Drugs: Negative Review of systems: Constitutional: Negative Lungs: Negative Heart: Negative GI: Negative : Uterine ablation Musculoskeletal: Negative Integument: Negative Psychiatric: Negative Hematologic: Negative ALLERGIES: negative Objective - Constitutional General appearance: Present: cooperative - EENT Eyes: Present: EOMI ENT: Present: hearing grossly normal - Neck Neck: Present: normal ROM - Respiratory Respiratory: bilateral: CTA - Cardiovascular Rhythm: regular Heart sounds: normal: S1, S2 - Gastrointestinal General gastrointestinal: Present: soft - Integumentary Integumentary: Present: normal turgor - Musculoskeletal Musculoskeletal: Present: gait normal - Psychiatric Psychiatric: Present: A&O x's 3, appropriate affect, intact judgment & insight - Additional findings Additional findings: Breast Exam: BRA: 32B inspection: bilateral grade 2 ptosis Patient: Right breast: Multi-positional exam no dominant masses or nodules of concern dense breast Right axilla: No adenopathy of concern left breast: Multiple positional exam fibrocystic changes, dense breasts no dominant masses or nodules of concern Left axilla: No adenopathy of concern Assessment and Plan Assessment: Impression: fibrocystic breast changes Plan: Bilateral mammogram and physician examine in 6 months Patient to follow-up sooner any questions or concerns Secondary to the patient's lifetime risk of breast cancer being greater than 20%. Darleen try to do alternating 6 month MRI and mammograms, we will attempt to get an MRI at this time and if so I will see the patient after this is done CC: Dr. Cm
[2022-08-06 15:25] VITALS: BP 175/88; PULSE 72; RESP 16; TEMP 97.8
== END ==
LOC: WWCWWP 14:26
PROVIDERS: ATTEND Surgery
DX: R92.8 Other abnormal and inconclusive findings on diagnostic imaging of breast (principal); N60.11 Diffuse cystic mastopathy of right breast; Z80.3 Family history of malignant neoplasm of breast; Z88.2 Allergy status to sulfonamides

== ENCOUNTER → 2023-02-05 | Outpatient (CLI) | payer BC ==
--- NOTE | 2023-02-06 09:28 | MM ---
Reason for Exam: Screening (asymptomatic). Last screening mammogram was performed 12 month(s) ago. Patient History: Menarche at age 13. First Full-Term at age 31. Late child-bearing (after 31). Postmenopausal. 2006, Core Biopsy on the Right side. Cyst Aspiration on the Left side. Excisional Biopsy on the Right side. 10/2015, Benign Stereotactic Core Biopsy on the left side. 04/2014, Benign Cyst Aspiration on the right side. Maternal grandmother had breast cancer, age 60. Mother had breast cancer, age 75. Risk Values: Maryse 5 year model risk: 3.7%. NCI Lifetime model risk: 22.4%. Prior Study Comparison: 02/07/2021 Right Diagnostic Mammogram, [facility]. 08/05/2021 Right MG 3D diag mammo w/cad [facility], [facility]. 02/03/2022 Bilateral MG 3D diag mammo w/cad [facility], [facility]. Tissue Density: The breast tissue is heterogeneously dense. This may lower the sensitivity of mammography. Findings: Analyzed By CAD. Left breast biopsy clip. There is no suspicious group of microcalcifications or new suspicious mass. Overall Assessment: Negative, BI-RAD 1 Management: Screening Mammogram of both breasts in [address] [facility] will attempt to contact patient to return for supplemental views and ultrasound if indicated. Patient should continue monthly self-breast exams. A clinical breast exam by your physician is recommended on an annual basis. This exam should not preclude additional follow-up of suspicious palpable abnormalities. Note on Maryse scores and lifetime risk: 1. A Maryse score greater than 3% is considered moderate risk. If this is the case, consider specialist referral to assess eligibility for a risk reducing agent. 2. If overall lifetime risk for the development of breast cancer is 20% or higher, the patient may qualify for future screening with alternating mammogram and breast MRI. Electronically signed and approved by: Dung Govea DO
== END | disposition home or self-care (01) ==
LOC: RADMAMWWP 09:04
PROVIDERS: ATTEND Surgery
DX: Z12.31 Encounter for screening mammogram for malignant neoplasm of breast (principal); Z80.3 Family history of malignant neoplasm of breast; Z78.0 Asymptomatic menopausal state
CPT/HCPCS: 77063; 77067

== ENCOUNTER → 2023-02-12 | Outpatient (CLI) | payer BC ==
--- NOTE | 2023-02-12 12:52 | P.PN ---
Subjective Progress Note Date: 02/12/23 Principal diagnosis: fibrocystic breast changes Fibrocystic breast changes Elma is a 57-year-old white female who presents for breast examination. [place] [id number]. This revealed question of increased findings of clustered calcifications upper outer quadrant medial position of the right breast. Additional views of the right breast was recommended. These were performed on 02-06-21. Repeat right breast mammogram in 6 months recommended. A repeat right breast mammogram was done on 08-05-21, and this was BIRAD 2. She has had a stereo left breast biopsy in the remote past which was benign in the right breast open biopsy in the remote past which was benign. A bilateral mammogram was performed on [id number] this was benign BIRADS 2. This was reviewed in person with Dr. Naranjo. The patient does not complain of any new lumps masses or nodules of concern in either breast. We have discussed her Maryse risk at 5 years of 3.4% and she has declined chemoprevention. 08-06-22 Not complain of any new lumps masses or not some concern in either breast. Maryse risk evaluation: 5 year risk: 3.4%, patient has declined chemoprevention Lifetime risk: 23.2%; she is interested in 6 month alternating mammogram and MRI We discussed genetic testing. 02-12-23 not compalining of any new lumps, masses, or nodules of concern in either breast She is going to start MRI alternating with mammogram in 6 months Bilateral mammogram 02-05-23 BIRAD 1 personally reviewed 5 year risk: 3.4%, patient has declined chemoprevention Lifetime risk: 22.4%; she is interested in 6 month alternating mammogram and MRI Caffeine: 2 cups coffee in am Nicotine: Negative chocolate: none Family History: Medical: Breast cancer Maternal grandmother: Breast cancer Father: Laryngeal cancer, he was a prior smoker Hormonal history: Menarche: 16 breast fed: None Age at first : 31 Menopause: Status post ablation still has cyclical breast pain suspect is perimenopausal control pills: 5 years Hormones: Negative Past surgical history: 1. Cholecystectomy 2. Ventral hernia repair 2. Uterine ablation 4. Breast biopsy 5. Bladder suspension 6. colonoscopy Past medical history: Negative Social history: Smoking: Negative Alcohol: Negative Drugs: Negative Review of systems: Constitutional: Negative Lungs: Negative Heart: Negative GI: Negative : Uterine ablation Musculoskeletal: Negative Integument: Negative Psychiatric: Negative Hematologic: Negative ALLERGIES: negative Objective - Constitutional General appearance: Present: cooperative - EENT Eyes: Present: EOMI ENT: Present: hearing grossly normal - Neck Neck: Present: normal ROM - Respiratory Respiratory: bilateral: CTA - Cardiovascular Rhythm: regular Heart sounds: normal: S1, S2 - Integumentary Integumentary: Present: normal turgor - Musculoskeletal Musculoskeletal: Present: gait normal - Psychiatric Psychiatric: Present: A&O x's 3, appropriate affect, intact judgment & insight - Additional findings Additional findings: Breast Exam: BRA: 32B inspection: bilateral grade 2 ptosis Patient: Right breast: Multi-positional exam no dominant masses or nodules of concern dense breast Right axilla: No adenopathy of concern left breast: Multiple positional exam fibrocystic changes, dense breasts no dominant masses or nodules of concern Left axilla: No adenopathy of concern Assessment and Plan Assessment: Impression: fibrocystic breast changes Plan: Breast MRI in 6 months and physician examine in 6 months Patient to follow-up sooner any questions or concerns patient declined chemoprevention CC: Dr. Cm
[2023-02-12 13:02] VITALS: BP 161/82; PULSE 60; RESP 18; TEMP 97.5
== END ==
LOC: WWCWWP 12:35
PROVIDERS: ATTEND Surgery
DX: N60.19 Diffuse cystic mastopathy of unspecified breast (principal); K43.9 Ventral hernia without obstruction or gangrene; Z90.49 Acquired absence of other specified parts of digestive tract; Z80.3 Family history of malignant neoplasm of breast; Z88.2 Allergy status to sulfonamides